=== PATIENT | male | born 1975 | race Caucasian/White ===

== ENCOUNTER 2020-08-25 12:15 | Emergency (ER) | payer SELFPAY | END 2020-08-25 14:28 | disposition home or self-care (01) | LOC: NAV ERS 12:15 | DX: S96.811A Strain of other specified muscles and tendons at ankle and foot level, right foot, initial encounter (principal); I10 Essential (primary) hypertension; W17.89XA Other fall from one level to another, initial encounter; Y93.39 Activity, other involving climbing, rappelling and jumping off ==